=== PATIENT | male | born 1990 | race Caucasian/White ===

== ENCOUNTER 2024-01-18 00:16 | Inpatient (IN) | payer MEDICAID, SELFPAY ==
[2024-01-18] VITALS (16 sets, daily range): BP systolic 120–170; BP diastolic 69–125; PULSE 88–130; RESP 14–18; TEMP 36.4–37; O2SAT 92–99
[2024-01-18 01:24] LABS: Basophils % 0.1 %; Hematocrit 38.3 % (37-53); Lymphocytes # 1.7 10^3/uL (0.8-4.8); Mean Corpuscular HGB Conc 31.1 g/dL (30-55); Mean Corpuscular Hemoglobin 23.3 pg (27-33); Mean Platelet Volume 7.9 fL (7.4-10.4); Monocytes # 1.5 10^3/uL (0.2-0.9); Neutrophils # 17.71 10^3/uL (1.8-7.7); Neutrophils % 84.2 %; Nucleated Red Blood Cells % 0 %; Platelet Count 540 10^3/cmm (157-399); Red Blood Count 5.11 10^6/uL (3.85-5.65); Red Cell Distribution Width 17.6 % (12.1-15.1); White Blood Count 21.06 10^3/uL (3.29-11.43)
[2024-01-18] MEDS: sodium chloride 0.9% 1,000 ML 999 ML IV (01:29)
[2024-01-18 01:42] LABS: Alanine Aminotransferase 32 U/L (0-41); Alkaline Phosphatase 126 U/L (40-130); Aspartate Amino Transferase 28 U/L (0-40); Blood Urea Nitrogen 15 mg/dL (6-20); C Reactive Protein 133.8 mg/L (0.0-4.9); Calcium 8.8 mg/dL (8.5-10.5); Carbon Dioxide 25 mmol/L (22-29); Chloride 100 mmol/L (98-107); Globulin 3.8 g/dL (1.3-4.6); Glucose 134 mg/dL (65-115); Lipase 7 U/L (13-60); Osmolality Calculated 289 mOsm/kg (285-295); Sodium 138 mmol/L (136-145); Total Bilirubin 0.3 mg/dL (0.15-1.2); Total Protein 7.8 g/dL (6.6-8.7)
--- NOTE | 2024-01-18 02:45 | CTR_ITS ---
PROCEDURE INFORMATION: Exam: CT Abdomen And Pelvis With Contrast Exam date and time: 01/18/2024 2:51 AM Age: 34 years old Clinical indication: Abdominal pain; Right; Prior surgery; Surgery date: 6+ months; Surgery type: Rle amputation; Patient HX: PT C/O RT flank pain. Patient had CT scan performed yesterday at outside facility which reported left iliopsoas hematoma/neoplasm/infection. ; Additional info: R flank pain. ? HX of left pelvic mass TECHNIQUE: Imaging protocol: Computed tomography of the abdomen and pelvis with contrast. Radiation optimization: All CT scans at this facility use at least one of these dose optimization techniques: automated exposure control; mA and/or kV adjustment per patient size (includes targeted exams where dose is matched to clinical indication); or iterative reconstruction. Contrast material: OMNI 350; Contrast volume: 100 ml; Contrast route: INTRAVENOUS (IV); COMPARISON: No relevant prior studies available. RADIATION DOSE METRICS: Total DLP (mGy-cm): 869.18 FINDINGS: Liver: Nonspecific ill-defined hypodensity in hepatic segment 6 measuring 1.6 x 1 cm (series 3, image 34). Gallbladder and biliary ducts: Normal. No calcified stones. No ductal dilation. Pancreas: Normal. No ductal dilation. Spleen: Normal. No splenomegaly. Adrenal glands: Normal. No mass. Kidneys and ureters: Normal. No hydronephrosis. Stomach and bowel: Unremarkable. No obstruction. No mucosal thickening. Appendix: No evidence of appendicitis. Intraperitoneal space: Unremarkable. No free air. No significant fluid collection. Vasculature: Unremarkable. No abdominal aortic aneurysm. Lymph nodes: Unremarkable. No enlarged lymph nodes. Urinary bladder: Unremarkable as visualized. Reproductive: Unremarkable as visualized. Bones/joints: Right proximal femoral amputation. Mild spondylosis. Soft tissues: Heterogenous soft tissue swelling of the left iliopsoas muscle with significant surrounding fat stranding and intramuscular edema. No definite drainable fluid collection is appreciated. CT/CT abdomen pelvis w con* [id number] IMPRESSION: 1. Heterogenous soft tissue swelling of the left iliopsoas muscle with significant surrounding fat stranding and muscular edema may represent an iliopsoas myositis or hematoma. There is no appreciable drainable fluid collection at this time. 2. There is a nonspecific ill-defined hypodensity in hepatic segment 6 that is incompletely characterized on this exam, recommend nonemergent CT triple phase liver for further evaluation.
[2024-01-18 02:46] LABS: Bilirubin Urine Negative (Negative); Blood Urine 1+ (Negative); Glucose Urine UA Negative (Normal); Ketones Urine Negative (Negative); Leukocyte Esterase Urine Trace (Negative); Nitrate Urine Negative (Negative); Protein Urine 1+ (Negative); Urine Appearance Clear (CLEAR); Urine Color Dark Yellow (Yellow); pH Urine 6.5 (5-7)
[2024-01-18 02:58] LABS: Specific Gravity, Urine 1.052 (1.005-1.030)
[2024-01-18 03:00] LABS: Add Urine Microscopic? YES; Hyaline Casts Urine 0.81 /lpf; RBC Urine 21-50 /hpf (0-2); WBC Urine 0-4 /hpf (0-5)
[2024-01-18 03:01] LABS: Add Urine Culture? No
[2024-01-18] MEDS: iohexol 350 mg/mL 500 mL Btl (per mL) IV (03:02)
--- NOTE | 2024-01-18 04:19 | W.ED.ABDPA2 ---
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 He presents with right sided mainly flank pain for the past 36 hours or so. He has been sick at his stomach. He has vomited a couple of times. He has not had a fever. He has had some chills. He presented to an outside facility, where he was found to have an elevated white blood cell count. Imaging was performed, and there was evidently some concern for a left-sided psoas problem. Not understanding why he would have right-sided abdominal pain/flank pain and a left-sided psoas problem, they left AGAINST MEDICAL ADVICE. They present here this morning with continued right-sided flank pain, and vomiting. His heart rate has also been high Related Data Allergies Allergy/AdvReac Type Severity Reaction Status Date / Time Penicillins Allergy ALGY-Anaphy Verified 01/18/24 04:39 laxis Physical Exam Const: COMMON NORMALS: alert GENERAL APPEARANCE: ill appearing (Mildly) ORIENTATION/CONSCIOUSNESS: Yes awake HENMT: COMMON NORMALS: atraumatic HEAD & SCALP: atraumatic FACE & SINUS: no ecchymosis Eye: PUPIL: Yes Other pupil findings (Both react) Neck/C-Spine: GENERAL: Yes trachea midline and No anterior neck swelling Resp: COMMON NORMALS: normal respiratory effort, No use of accessory muscles and clear to auscultation bilaterally AUSCULTATION: clear to auscultation bilaterally Cardio: COMMON NORMALS: regular rate and regular rhythm RATE: regular rate RHYTHM: regular rhythm GI: COMMON NORMALS: Soft to palpation PALPATION: Yes Soft to palpation and Yes Guarding due to palpation present (GI) : BLADDER/KIDNEY EXAM: Yes CVA tenderness on the right Back/Pelvis: GENERAL BACK: Yes CVA tenderness Neuro: SENSORIUM/ORIENTATION: Yes alert Course Vital Signs: Vital signs: Vital Signs Temperature 97.7 F 01/18/24 00:24 Pulse Rate 110 H 01/18/24 04:30 Respiratory Rate 18 01/18/24 00:24 Blood Pressure 138/90 01/18/24 04:30 Pulse Oximetry 97 01/18/24 04:30 Oxygen Delivery Me thod Room Air 01/18/24 02:30 MDM - Abdominal Pain Medical Decision Making Patient is afebrile. He is tachycardic. He is hypertensive not hypotensive. He is given 1 L bolus for the tachycardia. His white blood cell count is 21. CRP is 134. His lactic acid is 2. Potassium is 3.0. This will be repleted. CT was repeated, and shows heterogeneous soft tissue swelling of the left iliopsoas muscle with no drainable fluid collection present. This is likely a myositis versus less likely hematoma. He is covered with vancomycin and Zosyn. Spoke with hospitalist. Agrees to admission. Lab Data 01/18/24 01:16 01/18/24 01:16 Labs/Radiology: Radiology Impressions Abdomen/Pelvis CT 01/18/24 02:45 IMPRESSION: 1. Heterogenous soft tissue swelling of the left iliopsoas muscle with significant surrounding fat stranding and muscular edema may represent an iliopsoas myositis or hematoma. There is no appreciable drainable fluid collection at this time. 2. There is a nonspecific ill-defined hypodensity in hepatic segment 6 that is incompletely characterized on this exam, recommend nonemergent CT triple phase liver for further evaluation. Laboratory Results WBC 21.06 10^3/uL (3.29-11.43) H 01/18/24 01:16 RBC 5.11 10^6/uL (3.85-5.65) 01/18/24 01:16 Hgb 11.90 g/dL (11.27-16.99) 01/18/24 01:16 Hct 38.3 % (37-53) 01/18/24 01:16 MCV 75.0 fl (82-101) L 01/18/24 01:16 MCH 23.3 pg (27-33) L 01/18/24 01:16 MCHC 31.1 g/dL (30-55) 01/18/24 01:16 RDW 17.6 % (12.1-15.1) H 01/18/24 01:16 Plt Count 540 10^3/cmm (157-399) H 01/18/24 01:16 MPV 7.9 fL (7.4-10.4) 01/18/24 01:16 Neut % (Auto) 84.2 % 01/18/24 01:16 Lymph % (Auto) 8.0 % 01/18/24 01:16 [place] % (Auto) 7.0 % 01/18/24 01:16 Eos % (Auto) 0.0 % 01/18/24 01:16 Baso % (Auto) 0.1 % 01/18/24 01:16 Neut # (Auto) 17.71 10^3/uL (1.8-7.7) H 01/18/24 01:16 Lymph # (Auto) 1.7 10^3/uL (0.8-4.8) 01/18/24 01:16 [place] # (Auto) 1.5 10^3/uL (0.2-0.9) H 01/18/24 01:16 Eos # (Auto) 0.0 10^3/uL (0.0-0.8) 01/18/24 01:16 Baso # (Auto) 0.0 10^3/uL (0.0-0.1) 01/18/24 01:16 Nucleated RBC % (auto) 0 % 01/18/24 01:16 Nucleated RBCs # 0.0 /100WBC 01/18/24 01:16 Sodium 138 mmol/L (136-145) 01/18/24 01:16 Potassium 3.0 mmol/L (3.5-5.1) L 01/18/24 01:16 Chloride 100 mmol/L (98-107) 01/18/24 01:16 Carbon Dioxide 25 mmol/L (22-29) 01/18/24 01:16 Anion Gap 16.0 (5-19) 01/18/24 01:16 BUN 15 mg/dL (6-20) 01/18/24 01:16 Creatinine 0.8 mg/dL (0.7-1.2) 01/18/24 01:16 GFR Calculation 110.0 mL/min (90-130) 01/18/24 01:16 Glucose 134 mg/dL (65-115) H 01/18/24 01:16 Calculated Osmolality 289 mOsm/kg (285-295) 01/18/24 01:16 Lactic Acid 2.0 mmol/L (0.5-2.2) 01/18/24 01:16 Calcium 8.8 mg/dL (8.5-10.5) 01/18/24 01:16 Total Bilirubin 0.3 mg/dL (0.15-1.2) 01/18/24 01:16 AST 28 U/L (0-40) 01/18/24 01:16 ALT 32 U/L (0-41) 01/18/24 01:16 Alkaline Phosphatase 126 U/L (40-130) 01/18/24 01:16 C-Reactive Protein 133.8 mg/L (0.0-4.9) H 01/18/24 01:16 Total Protein 7.8 g/dL (6.6-8.7) 01/18/24 01:16 Albumin 4.0 g/dL (3.5-5.2) 01/18/24 01:16 Globulin 3.8 g/dL (1.3-4.6) 01/18/24 01:16 Lipase 7 U/L (13-60) L 01/18/24 01:16 Urine Color Dark yellow (Yellow) A 01/18/24 02:39 Urine Appearance Clear (CLEAR) 01/18/24 02:39 Urine pH 6.5 (5-7) 01/18/24 02:39 Ur Specific [place] 1.052 (1.005-1.030) H 01/18/24 02:39 Urine Protein 1+ (Negative) A 01/18/24 02:39 Urine Glucose (UA) Negative (Normal) 01/18/24 02:39 Urine Ketones Negative (Negative) 01/18/24 02:39 Urine Blood 1+ (Negative) A 01/18/24 02:39 Urine Nitrate Negative (Negative) 01/18/24 02:39 Urine Bilirubin Negative (Negative) 01/18/24 02:39 Urine Urobilinogen 1.0 mg/dL (Negative) 01/18/24 02:39 Ur Leukocyte Esterase Trace (Negative) A 01/18/24 02:39 Urine RBC 21-50 /hpf (0-2) H 01/18/24 02:39 Urine WBC 0-4 /hpf (0-5) H 01/18/24 02:39 Ur Squamous Epith Cells 6-10 /hpf (0-5) 01/18/24 02:39 Amorphous Sediment Not Reportable 01/18/24 02:39 Urine Bacteria None /hpf (NONE) 01/18/24 02:39 Hyaline Casts 0.81 /lpf 01/18/24 02:39 All radiology interpretation(s) finalized by discharge Discharge Plan Discharge Patient Disposition: Admitted As Inpatient Clinical Impression: SIRS (systemic inflammatory response syndrome), Iliopsoas muscle hematoma Condition: Fair Referrals: Manuelito Sullivan MD [Primary Care Provider] - Coding Level of Care Code ED Mobile Paramedical Examiner for Barbara Johns
[2024-01-18] MEDS: vancomycin 1,250 MG/250 ML PIGGYBACK 166.67 MG IV (04:41)
[2024-01-18] MEDS: levofloxacin-dextrose 5 % 500 MG/100 ML PREMIX 100 MG IV (05:26)
[2024-01-18] MEDS: metroNIDAZOLE IV 500 MG/100 ML PREMIX 100 MG IV (05:29)
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
--- NOTE | 2024-01-18 06:30 | XRR_ITS ---
PROCEDURE INFORMATION: Exam: XR Chest Exam date and time: 01/18/2024 8:51 AM Age: 34 years old Clinical indication: Pain; Right-sided; Additional info: Right side pain- assess for rib fracture TECHNIQUE: Imaging protocol: Radiologic exam of the chest. Views: 1 view. COMPARISON: CT abdomen pelvis w con* [id number] 01/18/2024 2:51 AM FINDINGS: Tubes, catheters and devices: Tip of the right chest wall port projects over the right atrium. Lungs: Low lung volumes with bronchovascular crowding . Pleural spaces: Unremarkable. No pleural effusion. No pneumothorax. Heart/Mediastinum: Cardiomediastinal silhouette is unremarkable. Bones/joints: No acute osseous or soft tissue abnormality. XR/XR chest 1V portable [id number] IMPRESSION: Low lung volumes with bronchovascular crowding.
--- NOTE | 2024-01-18 08:13 | P.PHAVANC_ITS ---
Vancomycin Goal - Goal Vancomycin Goal:: 15-20 mg/L Vancomycin Indication:: Other (Infectious Myositis) - Therapy Current therapy:: Other Antibiotic (Aztreonam IVPB 2gm Q8H) Day of therpy:: Day []of [] . Actual body weight (kg): 73.482 kg [place] body weight: 27 KG Dosing weight (kg): 73.482 kg - Data Labs: WBC 21.06 10^3/uL (3.29-11.43) H 01/18/24 01:16 RBC 5.11 10^6/uL (3.85-5.65) 01/18/24 01:16 Hgb 11.90 g/dL (11.27-16.99) 01/18/24 01:16 Hct 38.3 % (37-53) 01/18/24 01:16 MCV 75.0 fl (82-101) L 01/18/24 01:16 MCH 23.3 pg (27-33) L 01/18/24 01:16 MCHC 31.1 g/dL (30-55) 01/18/24 01:16 RDW 17.6 % (12.1-15.1) H 01/18/24 01:16 Sodium 138 mmol/L (136-145) 01/18/24 01:16 Potassium 3.0 mmol/L (3.5-5.1) L 01/18/24 01:16 Chloride 100 mmol/L (98-107) 01/18/24 01:16 Carbon Dioxide 25 mmol/L (22-29) 01/18/24 01:16 Anion Gap 16.0 (5-19) 01/18/24 01:16 BUN 15 mg/dL (6-20) 01/18/24 01:16 Creatinine 0.8 mg/dL (0.7-1.2) 01/18/24 01:16 GFR Calculation 110.0 mL/min (90-130) 01/18/24 01:16 Last dialysis session:: N/A Drug administration history:: Medications Aztreonam 2,000 mg/ Sodium (Chloride) 100 mls @ 200 mls/hr IV Q8H TILA; Protocol Vancomycin HCl 500 mg/ Sodium (Chloride) 100 mls @ 200 mls/hr IV Q12H TILA Discontinued Medications Levofloxacin/Dextrose (Levaquin-D5w) 500 mg in 100 mls @ 100 mls/hr IV ONCE ONE; Protocol Stop: 01/18/24 05:38 Last Admin: 01/18/24 06:36 Dose: Infused Metronidazole (Flagyl Iv) 500 mg in 100 mls @ 100 mls/hr IV ONCE ONE Stop: 01/18/24 05:38 Last Admin: 01/18/24 06:36 Dose: Infused Piperacillin Sod/Tazobactam (Sod 3.375 gm/ Sodium Chloride) 50 mls @ 100 mls/hr IV ONCE ONE; Protocol Stop: 01/18/24 04:58 Last Admin: 01/18/24 06:36 Dose: Not Given Vancomycin HCl (Vancocin) 1,250 mg in 250 mls @ 166.667 mls/hr IV ONCE ONE; Protocol Stop: 01/18/24 05:58 Last Admin: 01/18/24 06:36 Dose: Infused Laboratory Tests 01/18/24 01:16 Creatinine 0.8 Treatment plan:: new consult Regimen:: Vancomycin 500mg IVPB Q12H Follow up:: Scr daily with AM labs. Pharmacy will continue to monitor. Rationale:: t1/2 15 hrs.
[2024-01-18] MEDS: aztreonam 2,000 MG in sodium chloride 0.9% (plus) 100 ML 200 MG IV ×3 (08:14→22:47)
[2024-01-18] MEDS: lidocaine 1% 5 ML in potassium chloride premix 100 ML 26.25 ML IV (09:38)
[2024-01-18] MEDS: sodium chlor 0.9% + KCl 20 mEq 20 MEQ/1,000 ML BAG 100 MEQ IV ×2 (09:39→20:50)
[2024-01-18] MEDS: loratadine 10 mg Tablet PO (09:40)
[2024-01-18] MEDS: pantoprazole DR 40 mg Tablet PO ×2 (09:40→21:30)
[2024-01-18] MEDS: carBAMazepine 200 mg Tablet PO ×2 (09:40→21:30)
[2024-01-18 11:16] LABS: Estmated Average Glucose 117; Hemoglobin A1C 5.7 % (4.0-6.0)
[2024-01-18 11:28] LABS: Procalcitonin 0.08 ng/mL (0-0.5); Thyroid Stimulating Hormone 1.41 uIU/mL (0.27-4.20); Vitamin B12 554 pg/mL (232-1245)
[2024-01-18 11:38] LABS: Iron 18 ug/dL (59-158); Percent Saturation 8.2 % (20-50); Total Iron Binding Capacity 217 mcg/dl; Unsaturated Iron Binding 199 ug/dL (112-347)
[2024-01-18 17:01] LABS: MRSA PCR OZH (swab) NOT DETECTED (Negative)
[2024-01-18] MEDS: vancomycin 500 MG in sodium chloride 0.9% (plus) 100 ML 200 MG IV (17:14)
[2024-01-18 19:55] LABS: C.Diff PCR (Lab) NEGATIVE (Negative)
[2024-01-19] VITALS (7 sets, daily range): BP systolic 130–180; BP diastolic 72–84; PULSE 90–110; RESP 15–18; TEMP 36.3–36.7; O2SAT 93–99
[2024-01-19] MEDS: vancomycin 500 MG in sodium chloride 0.9% (plus) 100 ML 200 MG IV (04:46)
[2024-01-19 04:48] LABS: Basophils # 0.1 10^3/uL (0.0-0.1); Basophils % 0.4 %; Eosinophils # 0.1 10^3/uL (0.0-0.8); Hematocrit 34.7 % (37-53); Lymphocytes # 2.1 10^3/uL (0.8-4.8); Lymphocytes % 18.6 %; Mean Corpuscular HGB Conc 30.3 g/dL (30-55); Mean Corpuscular Hemoglobin 23.3 pg (27-33); Mean Corpuscular Volume 76.9 fl (82-101); Mean Platelet Volume 8.3 fL (7.4-10.4); Monocytes # 1.1 10^3/uL (0.2-0.9); Monocytes % 10.1 %; Neutrophils # 7.77 10^3/uL (1.8-7.7); Nucleated Red Blood Cells % 0 %; Platelet Count 521 10^3/cmm (157-399); Red Blood Count 4.51 10^6/uL (3.85-5.65); Red Cell Distribution Width 17.6 % (12.1-15.1); White Blood Count 11.26 10^3/uL (3.29-11.43)
[2024-01-19 05:04] LABS: Alanine Aminotransferase 33 U/L (0-41); Albumin Level 3.5 g/dL (3.5-5.2); Alkaline Phosphatase 108 U/L (40-130); Anion Gap 12.5 (5-19); Aspartate Amino Transferase 19 U/L (0-40); Blood Urea Nitrogen 9 mg/dL (6-20); Calcium 8.3 mg/dL (8.5-10.5); Carbon Dioxide 25 mmol/L (22-29); Chloride 103 mmol/L (98-107); Creatinine Clr Calc Pharmacy 177.7198; Globulin 3.2 g/dL (1.3-4.6); Glomerular Filtration Rate 153.3 mL/min (90-130); Glucose 94 mg/dL (65-115); Osmolality Calculated 282 mOsm/kg (285-295); Potassium 3.5 mmol/L (3.5-5.1); Sodium 137 mmol/L (136-145); Total Bilirubin 0.2 mg/dL (0.15-1.2); Total Protein 6.7 g/dL (6.6-8.7)
[2024-01-19 05:15] LABS: Chol HDL Ratio 3.95 mg/dL (1.0-5.00); Cholesterol 158 mg/dL (0-200); HDL Cholesterol 40 mg/dL (60-100); LDL Cholesterol Calculated 100 mg/dL (50-129); Magnesium 2.1 mg/dL (1.7-2.3); Triglycerides 88 mg/dL (0-150); VLDL Cholestrol Calculation 18 mg/dL (0-30)
[2024-01-19 05:27] LABS: Folate Level 3.2 ng/mL (4.5-32.2)
[2024-01-19] MEDS: aztreonam 2,000 MG in sodium chloride 0.9% (plus) 100 ML 200 MG IV ×3 (06:33→22:40)
[2024-01-19] MEDS: sodium chlor 0.9% + KCl 20 mEq 20 MEQ/1,000 ML BAG 100 MEQ IV (06:35)
[2024-01-19] MEDS: carBAMazepine 200 mg Tablet PO ×2 (09:27→21:17)
[2024-01-19] MEDS: loratadine 10 mg Tablet PO (09:27)
[2024-01-19] MEDS: pantoprazole DR 40 mg Tablet PO ×2 (09:27→21:17)
[2024-01-19] MEDS: folic acid 1 mg Tablet PO ×2 (10:56→17:03)
--- NOTE | 2024-01-19 11:56 | P.PN_ITS ---
Subjective 2 Subjective: No acute events overnight. Seen with family at bedside. Denies any nausea, vomiting, headache. Has remained hemodynamically stable and afebrile. Vitals/I&O/Wt Last Vital Signs Temp 97.8 F 01/19/24 08:00 Pulse 109 H 01/19/24 08:00 Resp 18 01/19/24 08:00 BP 140/83 01/19/24 08:00 Pulse Ox 99 01/19/24 08:00 O2 Del Method Room Air 01/19/24 08:00 01/18/24 01/19/24 01/19/24 22:59 06:59 14:59 Intake Total 1800.000 / 2485.000 1175 / 3660.000 780 / 780 Balance 1800.000 / 2485.000 1175 / 3660.000 780 / 780 Weight last 48 hrs Weight 73.119 kg Weight 73.482 kg Weight 73.482 kg Physical Exam 2 Narrative: General: No acute distress, AO x3 HEENT: PERRLA, pupils bilaterally equal and reactive, pallors not present Chest: Normal vesicular breath sounds, no added sounds, equal good air entry bilaterally CVS: S1-S2 regular, no murmurs, no tachycardia, no gallops, no rubs Abdomen: Soft, nontender, no organomegaly, bowel sounds present Neuro: No focal deficits, no facial deformity, AO x3, power 5/5 in all limbs Extremities: Discomfort to palpation over the left posterior flank. Improving since yesterday. Data 01/19/24 03:16 01/19/24 03:16 Micro: Microbiology 01/18/24 02:39 Bacterial Antigens - Final Urine Kidney 01/18/24 05:23 Blood Culture - Preliminary Blood NEGATIVE TO DATE 01/18/24 05:20 Blood Culture - Preliminary Blood NEGATIVE TO DATE A&P Assessment and plan (1) Infectious myositis: (2) Prader-Willi syndrome: (3) Autonomic dysfunction: Plan 34-year-old male with a past medical history of Prader-Willi syndrome, autonomic, seizure disorder currently admitted to the hospital with chief complaints of abdominal and back pain, fever at home. Patient was noted to be hypoxic CT of the abdomen and pelvis notable for heterogeneous soft tissue swelling in the left iliopsoas muscle with significant fat stranding and muscular edema concerning for iliopsoas myositis or hematoma. No appreciable drainable fluid at this time. High concerns for bacteremia given psoas myositis. Not able to access patient's port. Concern for mild fluctuation at the port site. Follow-up blood culture. Recheck CRP in AM. Continue with broad-spectrum antibiotics with aztreonam and vancomycin for now. Target trough of vancomycin 15-20. MRSA swab negative. Ultrasound of port site. Depending on the result might need I&D for culture. Full code Regular diet Protonix for PUD prophylaxis Heparin for DVT prophylaxis Attestations 2 Medical Necessity Statement*: Requires further hospitalization for management of psoas muscle myositis while bacteremia ruled out. Diagnoses Infectious myositis M60.009 Prader-Willi syndrome Q87.11 Autonomic dysfunction G90.9
--- NOTE | 2024-01-19 11:58 | USR_ITS ---
PROCEDURE INFORMATION: Exam: US Right Limited Joint or Other Non-Vascular Extremity Structure Exam date and time: 01/19/2024 2:13 PM Age: 34 years old Clinical indication: Condition or disease; Other: Port site with concerns for fluctuation and collection; Prior surgery; Surgery date: 6+ months; Surgery type: Unsure of placement but this is a port site TECHNIQUE: Imaging protocol: US right limited joint or other nonvascular extremity structure. Real-time ultrasound with image documentation. Exam focused on the area of clinical interest. COMPARISON: No relevant prior studies available. FINDINGS: Soft tissues: Unremarkable. No loculated collections. Other findings: There is a rounded hypoechoic area of the right chest port site measuring 1.8 x 1.3 x 1.6 cm with posterior acoustic shadowing, likely the port access. No definite surrounding fluid visualized. US/US soft tissue/extremity [id number] IMPRESSION: No definite fluid collection identified.
[2024-01-19] MEDS: heparin 5,000 unit/mL INJ 1 mL 5000 UNIT SUBCUT ×2 (12:15→22:39)
[2024-01-19] MEDS: vancomycin 1,000 MG in sodium chloride 0.9% 250 ML 250 MG IV ×2 (13:34→21:17)
[2024-01-20] VITALS (10 sets, daily range): BP systolic 101–141; BP diastolic 57–92; PULSE 82–135; RESP 12–18; TEMP 36.5–36.9; O2SAT 94–97
[2024-01-20] MEDS: vancomycin 1,000 MG in sodium chloride 0.9% 250 ML 250 MG IV (04:56)
[2024-01-20 05:56] LABS: Albumin Level 3.9 g/dL (3.5-5.2); Alkaline Phosphatase 117 U/L (40-130); Blood Urea Nitrogen 9 mg/dL (6-20); C Reactive Protein 44.1 mg/L (0.0-4.9); Calcium 8.6 mg/dL (8.5-10.5); Carbon Dioxide 25 mmol/L (22-29); Chloride 99 mmol/L (98-107); Creatinine Clr Calc Pharmacy 147.5354; Globulin 2.8 g/dL (1.3-4.6); Glomerular Filtration Rate 128.3 mL/min (90-130); Glucose 92 mg/dL (65-115); Magnesium 2.2 mg/dL (1.7-2.3); Osmolality Calculated 276 mOsm/kg (285-295); Sodium 134 mmol/L (136-145); Total Bilirubin 0.2 mg/dL (0.15-1.2); Total Protein 6.7 g/dL (6.6-8.7)
[2024-01-20 05:58] LABS: Alanine Aminotransferase 36 U/L (0-41); Anion Gap 14.2 (5-19); Aspartate Amino Transferase 25 U/L (0-40); Potassium 4.2 mmol/L (3.5-5.1)
[2024-01-20] MEDS: aztreonam 2,000 MG in sodium chloride 0.9% (plus) 100 ML 200 MG IV ×3 (06:20→23:05)
[2024-01-20 07:01] LABS: Basophils # 0.1 10^3/uL (0.0-0.1); Basophils % 0.6 %; Eosinophils # 0.2 10^3/uL (0.0-0.8); Eosinophils % 1.9 %; Hematocrit 38.4 % (37-53); Lymphocytes # 2.3 10^3/uL (0.8-4.8); Lymphocytes % 19.3 %; Mean Corpuscular HGB Conc 30.7 g/dL (30-55); Mean Corpuscular Hemoglobin 24.1 pg (27-33); Mean Corpuscular Volume 78.5 fl (82-101); Mean Platelet Volume 8.2 fL (7.4-10.4); Monocytes # 0.9 10^3/uL (0.2-0.9); Monocytes % 7.9 %; Neutrophils # 8.17 10^3/uL (1.8-7.7); Neutrophils % 69.8 %; Nucleated Red Blood Cells % 0 %; Platelet Count 533 10^3/cmm (157-399); Red Blood Count 4.89 10^6/uL (3.85-5.65); Red Cell Distribution Width 17.5 % (12.1-15.1); White Blood Count 11.71 10^3/uL (3.29-11.43)
[2024-01-20] MEDS: pantoprazole DR 40 mg Tablet PO ×2 (09:25→23:05)
[2024-01-20] MEDS: loratadine 10 mg Tablet PO (09:25)
[2024-01-20] MEDS: folic acid 1 mg Tablet PO ×2 (09:25→17:12)
[2024-01-20] MEDS: carBAMazepine 200 mg Tablet PO ×2 (09:25→23:05)
--- NOTE | 2024-01-20 09:42 | PC.CHAP ---
Pastoral Care Encounter/Spiritual Assessment Type of Contact [] Declined scanning tech visit [] Patient/Family/Request visit [] Outpatient visit [] Follow-up visit [] Physician referral [] Code/Alert [x] Routine visit [] Staff referral [] Actively dying [x] Patient sleeping [] Family support [] [] Out of room [] Palliative care [] [] Receiving care in room [] Pre-surgical visit [] Trauma [] Long length of stay [] ICU visit [] Other: Relational/Emotional Strength [] Patient feels connected with others/family/visitors/staff [] Distress [] Loneliness/isolation [] Abandonment Spirituality of Patient [] Person of Maria G [] Attends Quaker of their Maria G [] Believes in Prayer [] Reads Bible or Rastafarian materials [] There are Spiritual issues to be addressed Tenterer Interventions [x] Prayer [] Active listening [] Non-anxious presence [] Spiritual/emotional support [] Crisis/trauma care [] Spiritual counseling [] Bereavement support [] Provided bereavement packet [] Provided Bible/devotional materials [] Provided toy/stuffed animal, coloring book to patient or family member [] Provided Communion [] Anointing/[place] [] Salvation [] Completed spiritual assessment [] Other: Impact on Illness or Injury [] Angry [] Fearful [] Anxious [] Often cries [] Exhaustion [] Unable to work [] Unable to attend temple [] Unable to walk/stand [] Unable to read [] Unable to drive [] Unable to eat/drink [] Unable to sleep [] Unable to be with family [] Patient intubated [] Other: Summary Time spent with patient
[2024-01-20] MEDS: heparin 5,000 unit/mL INJ 1 mL 5000 UNIT SUBCUT ×2 (11:40→23:05)
[2024-01-20 12:53] LABS: Vancomycin Trough 14.8 ug/mL (10-15)
--- NOTE | 2024-01-20 12:58 | P.PN_ITS ---
Subjective 2 Subjective: CRP 44. Blood cultures negative to date Bacterial antigen negative Patient states he is starting to feel like he is normal again. Says pain over left flank is improved and no longer there. Soft tissue ultrasound reviewed. No defined abscess seen. Vitals/I&O/Wt Last Vital Signs Temp 98.2 F 01/20/24 11:22 Pulse 107 H 01/20/24 11:22 Resp 15 01/20/24 11:22 BP 131/79 01/20/24 11:22 Pulse Ox 95 01/20/24 11:22 O2 Del Method Room Air 01/20/24 11:22 01/19/24 01/20/24 01/20/24 22:59 06:59 14:59 Intake Total 470 / 1500 350 / 1850 454 / 454 Balance 470 / 1500 350 / 1850 454 / 454 Weight last 48 hrs Weight 70.817 kg Weight 73.119 kg Physical Exam 2 Narrative: General: No acute distress, AO x3 HEENT: PERRLA, pupils bilaterally equal and reactive, pallors not present Chest: Normal vesicular breath sounds, no added sounds, equal good air entry bilaterally CVS: S1-S2 regular, no murmurs, no tachycardia, no gallops, no rubs Abdomen: Soft, nontender, no organomegaly, bowel sounds present Neuro: No focal deficits, no facial deformity, AO x3, power 5/5 in all limbs Extremities: No gross edema. Visible skin intact. Few areas of ecchymosis present Data 01/20/24 05:57 01/20/24 04:41 Micro: Microbiology 01/18/24 02:39 Bacterial Antigens - Final Urine Kidney A&P Assessment and plan (1) Infectious myositis: (2) Prader-Willi syndrome: (3) Autonomic dysfunction: Plan 34-year-old male with a past medical history of Prader-Willi syndrome, autonomic, seizure disorder currently admitted to the hospital with chief complaints of abdominal and back pain, fever at home. Patient was noted to be hypoxic CT of the abdomen and pelvis notable for heterogeneous soft tissue swelling in the left iliopsoas muscle with significant fat stranding and muscular edema concerning for iliopsoas myositis or hematoma. No appreciable drainable fluid at this time. High concerns for bacteremia given psoas myositis. Not able to access patient's port. Concern for mild fluctuation at the port site. Follow-up blood culture. Recheck CRP in AM. Continue with broad-spectrum antibiotics with aztreonam and vancomycin for now. Target trough of vancomycin 15-20. MRSA swab negative. Ultrasound of port site. Depending on the result might need I&D for culture. Full code Regular diet Protonix for PUD prophylaxis Heparin for DVT prophylaxis 01/19 ? Blood cultures negative to date. CRP trending down. ? Flank pain improving ? Soft tissue ultrasound reviewed. No defined abscess around port however hypoechoic area seen. This may be possibly secondary to the port itself. ? Patient has a history of recurrent infections and there is concern for hematogenousl spread at this time. He has been on antibiotics multiple times in the past. ? Continue broad-spectrum vancomycin and aztreonam at this time. ? Will consult infectious disease for duration of antibiotic treatment and further input. Discussed with the patient. Attestations 2 Medical Necessity Statement*: Requires further hospitalization for management of psoas muscle myositis while bacteremia ruled out. Diagnoses Infectious myositis M60.009 Prader-Willi syndrome Q87.11 Autonomic dysfunction G90.9
[2024-01-20] MEDS: vancomycin 1,250 MG/250 ML PIGGYBACK 166.67 MG IV (14:12)
--- NOTE | 2024-01-20 14:54 | ECG_ITS ---
[facility] Test Date: 2024-01-20 Pat Name: Lion Connell Department: Room: 255 Gender: Male Marketing Communications Leader: : 1990 Requested By: Augusta Fox Order Number: [id number] Jeanmarie MD: Denzel Fitzgerald M.D. Measurements Intervals [place] Rate: 120 P: 42 OR: 124 QRS: 5 QRSD: 89 T: 70 QT: 338 QTc: 479 Interpretive Statements SINUS TACHYCARDIA NONSPECIFIC T-WAVE ABNORMALITY ABNORMAL RHYTHM ECG No previous ECG available for comparison Electronically Signed On 01-21-2024 01:22:54 CDT by Denzel Fitzgerald M.D. [id number]
[2024-01-20] MEDS: sodium chloride 0.9% 500 ML 999 ML IV (15:44)
[2024-01-20] MEDS: vancomycin 1,250 MG/250 ML PIGGYBACK 166 MG IV (20:39)
[2024-01-21] VITALS (8 sets, daily range): BP systolic 102–137; BP diastolic 60–83; PULSE 86–118; RESP 14–17; TEMP 36.4–37.1; O2SAT 90–98
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
[2024-01-21] MEDS: vancomycin 1,250 MG/250 ML PIGGYBACK 166 MG IV ×3 (04:40→20:37)
[2024-01-21 05:19] LABS: Basophils # 0.1 10^3/uL (0.0-0.1); Basophils % 0.7 %; Eosinophils # 0.2 10^3/uL (0.0-0.8); Eosinophils % 1.4 %; Hematocrit 40.2 % (37-53); Lymphocytes # 2.3 10^3/uL (0.8-4.8); Lymphocytes % 17.6 %; Mean Corpuscular HGB Conc 30.3 g/dL (30-55); Mean Corpuscular Hemoglobin 23.6 pg (27-33); Mean Corpuscular Volume 77.8 fl (82-101); Monocytes # 0.9 10^3/uL (0.2-0.9); Monocytes % 6.9 %; Neutrophils # 9.55 10^3/uL (1.8-7.7); Neutrophils % 72.7 %; Nucleated Red Blood Cells % 0 %; Platelet Count 580 10^3/cmm (157-399); Red Blood Count 5.17 10^6/uL (3.85-5.65); Red Cell Distribution Width 17.4 % (12.1-15.1); White Blood Count 13.15 10^3/uL (3.29-11.43)
[2024-01-21 05:49] LABS: Alanine Aminotransferase 49 U/L (0-41); Albumin Level 3.8 g/dL (3.5-5.2); Alkaline Phosphatase 123 U/L (40-130); Anion Gap 16.7 (5-19); Aspartate Amino Transferase 30 U/L (0-40); Blood Urea Nitrogen 10 mg/dL (6-20); Calcium 8.7 mg/dL (8.5-10.5); Carbon Dioxide 23 mmol/L (22-29); Chloride 100 mmol/L (98-107); Creatinine Clr Calc Pharmacy 147.5354; Globulin 3.4 g/dL (1.3-4.6); Glomerular Filtration Rate 128.3 mL/min (90-130); Glucose 90 mg/dL (65-115); Osmolality Calculated 281 mOsm/kg (285-295); Potassium 3.7 mmol/L (3.5-5.1); Sodium 136 mmol/L (136-145); Total Bilirubin 0.2 mg/dL (0.15-1.2); Total Protein 7.2 g/dL (6.6-8.7)
[2024-01-21 05:54] LABS: Magnesium 2.1 mg/dL (1.7-2.3)
[2024-01-21] MEDS: aztreonam 2,000 MG in sodium chloride 0.9% (plus) 100 ML 200 MG IV ×3 (06:27→23:07)
--- NOTE | 2024-01-21 09:00 | PICC.NOTE ---
Contacted by Med-surg charge nurse to assist with access of implanted port. Right chest port accessed using 19 gauge 1 inch port needle x 1 stick. Site cleaned with CHG and allowed to dry prior to access. Good, brisk blood return noted. Flushed with 20 mL NS. Secured with Sorbaview transparent dressing. Report given to charge nurseBeto.
[2024-01-21] MEDS: carBAMazepine 200 mg Tablet PO ×2 (09:34→23:07)
[2024-01-21] MEDS: pantoprazole DR 40 mg Tablet PO ×2 (09:35→23:08)
[2024-01-21] MEDS: loratadine 10 mg Tablet PO (09:35)
[2024-01-21] MEDS: folic acid 1 mg Tablet PO ×2 (09:35→17:39)
[2024-01-21] MEDS: heparin 5,000 unit/mL INJ 1 mL 5000 UNIT SUBCUT ×2 (12:10→23:10)
--- NOTE | 2024-01-21 12:42 | P.PN_ITS ---
Subjective 2 Subjective: seen this morning pt resting comfortably in bed no acute events overnight Vitals/I&O/Wt Last Vital Signs Temp 98.7 F 01/21/24 11:18 Pulse 108 H 01/21/24 11:18 Resp 15 01/21/24 11:18 BP 137/71 01/21/24 11:18 Pulse Ox 97 01/21/24 11:18 O2 Del Method Room Air 01/21/24 11:18 01/20/24 01/21/24 01/21/24 22:59 06:59 14:59 Intake Total 1340 / 1794 350 / 2144 1176 / 1176 Balance 1340 / 1794 350 / 2144 1176 / 1176 Weight last 48 hrs Weight 72.892 kg Weight 70.817 kg Physical Exam 2 Narrative: General: No acute distress, AO x3 HEENT: PERRLA, pupils bilaterally equal and reactive, pallors not present Chest: Normal vesicular breath sounds, no added sounds, equal good air entry bilaterally CVS: S1-S2 regular, no murmurs, no tachycardia, no gallops, no rubs Abdomen: Soft, nontender, no organomegaly, bowel sounds present Neuro: No focal deficits, no facial deformity, AO x3 Extremities: No gross edema. Visible skin intact. Few areas of ecchymosis present Data 01/21/24 04:27 01/21/24 04:27 Micro: Microbiology 01/21/24 12:09 Blood Culture - Preliminary Blood SPECIMEN COLLECTED A&P Assessment and plan (1) Infectious myositis: (2) Prader-Willi syndrome: (3) Autonomic dysfunction: Plan 34-year-old male with a past medical history of Prader-Willi syndrome, autonomic, seizure disorder currently admitted to the hospital with chief complaints of abdominal and back pain, fever at home. Patient was noted to be hypoxic CT of the abdomen and pelvis notable for heterogeneous soft tissue swelling in the left iliopsoas muscle with significant fat stranding and muscular edema concerning for iliopsoas myositis or hematoma. No appreciable drainable fluid at this time. High concerns for bacteremia given psoas myositis. Not able to access patient's port. Concern for mild fluctuation at the port site. Follow-up blood culture. Recheck CRP in AM. Continue with broad-spectrum antibiotics with aztreonam and vancomycin for now. Target trough of vancomycin 15-20. MRSA swab negative. Ultrasound of port site. Depending on the result might need I&D for culture. Full code Regular diet Protonix for PUD prophylaxis Heparin for DVT prophylaxis 01/20 ? Blood cultures negative to date. CRP trending down. ? Flank pain improving further ? Soft tissue ultrasound reviewed. No defined abscess around port however hypoechoic area seen. This may be possibly secondary to the port itself. ? Patient has a history of recurrent infections and there is concern for hematogenousl spread at this time. He has been on antibiotics multiple times in the past. ? Continue broad-spectrum vancomycin and aztreonam at this time. ? Will consult infectious disease for duration of antibiotic treatment and further input. Appreciate recommendations. - check echo - check crp in am - check blood cultures from port - continue IV antibiotics for now. - pt has been afebrile - Will continue to follow ID recs. Attestations 2 Medical Necessity Statement*: continue to hospitalize for psoas abscess Diagnoses Infectious myositis M60.009 Prader-Willi syndrome Q87.11 Autonomic dysfunction G90.9
[2024-01-21 22:26] LABS: Vancomycin Trough 61.4 ug/mL (10-15)
--- NOTE | 2024-01-21 22:31 | PC.NURSE ---
Addendum entered by Alyssa Simms RN 01/22/24 06:44: Notified Ania Cornejo of a.m. vanc trough, received instructions to go ahead and give scheduled morning dose of vancomycin. Original Note: Received critical result on vanc trough, result 61.4. Notified [facility] of result, instructed to redraw trough at 0500 and report back to telepharmacist the result at that time.
[2024-01-22] VITALS (8 sets, daily range): BP systolic 106–144; BP diastolic 72–89; PULSE 87–117; RESP 16–18; TEMP 36.5–37.3; O2SAT 93–98
[2024-01-22 06:07] LABS: Basophils # 0.1 10^3/uL (0.0-0.1); Basophils % 0.7 %; Eosinophils # 0.2 10^3/uL (0.0-0.8); Eosinophils % 1.4 %; Hematocrit 38.7 % (37-53); Lymphocytes # 1.9 10^3/uL (0.8-4.8); Mean Corpuscular Hemoglobin 23.8 pg (27-33); Mean Corpuscular Volume 76.6 fl (82-101); Monocytes # 0.9 10^3/uL (0.2-0.9); Monocytes % 6.5 %; Neutrophils % 76.3 %; Nucleated Red Blood Cells % 0 %; Platelet Count 583 10^3/cmm (157-399); Red Blood Count 5.05 10^6/uL (3.85-5.65); Red Cell Distribution Width 17.5 % (12.1-15.1); White Blood Count 13.64 10^3/uL (3.29-11.43)
[2024-01-22 06:27] LABS: Anion Gap 13.9 (5-19); Blood Urea Nitrogen 10 mg/dL (6-20); Calcium 8.9 mg/dL (8.5-10.5); Carbon Dioxide 26 mmol/L (22-29); Chloride 98 mmol/L (98-107); Creatinine Clr Calc Pharmacy 153.0875; Glomerular Filtration Rate 128.3 mL/min (90-130); Glucose 80 mg/dL (65-115); Magnesium 2.2 mg/dL (1.7-2.3); Osmolality Calculated 276 mOsm/kg (285-295); Potassium 3.9 mmol/L (3.5-5.1); Sodium 134 mmol/L (136-145)
[2024-01-22 06:32] LABS: Vancomycin Trough 17.6 ug/mL (10-15)
--- NOTE | 2024-01-22 06:53 | USCV_ITS ---
Lion Connell Age: 34 Gender: M : 1990 Exam Date: 01/22/2024 01:22 Ordering Phys: Mary Timmons MD Technologist: [email or web address] [place]am [place] [facility] [place]ication: ASSESS FOR ENDOCARDITIS BP: 122 / 76 HR: 101 Rhythm: Sinus Technical Quality: Adequate MEASUREMENTS (Male / Female) Normal Values 2D ECHO LV Diastolic Diameter PLAX 3.1 cm 4.2 - 5.9 / 3.9 - 5.3 cm IVS Diastolic Thickness 1.1 cm 0.6 - 1.0 / 0.6 - 0.9 cm IVS Systolic Thickness 1.6 cm LVPW Diastolic Thickness 0.9 cm 0.6 - 1.0 / 0.6 - 0.9 cm LVPW Systolic Thickness 1.0 cm LVOT Diameter 2.1 cm LV Ejection Fraction 2D Teich 75.5 % LV Ejection Fraction MOD 4C 51.7 % LV Ejection Fraction MOD 2C 54.9 % LV Ejection Fraction 2C AL 56.1 % LA Diameter 2.1 cm Aorta at Sinotubular Diameter 2.8 cm IVC Diameter 0.6 cm M-MODE LA Ao Ratio MM 0.9 AV Cusp Separation MM 1.6 cm DOPPLER AV Peak Velocity 74.0 cm/s LVOT Peak Velocity 76.0 cm/s AV Area Cont Eq vti 2.9 cm squared AV Area Cont Eq pk 3.6 cm squared MV Peak Velocity 95.0 cm/s MV Area PHT 5.0 cm squared Mitral E to A Ratio 0.8 TV Peak E Velocity 59.0 cm/s PV Peak Velocity 92.0 cm/s FINDINGS Left Ventricle Normal left ventricular size, systolic function and wall thickness, with no regional wall motion abnormalities. Left ventricular ejection fraction is estimated at 60 %. Grade I/IV diastolic dysfunction (abnormal relaxation filling pattern), normal to mildly elevated filling pressures. Right Ventricle The right ventricle is normal in size and function. Right Atrium The right atrium is normal in size. Left Atrium The left atrium is normal in size. Mitral Valve Moderately thickened mitral valve. Mild mitral valve regurgitation. Aortic Valve Structurally normal aortic valve without significant sclerosis or stenosis. There is no aortic regurgitation. Tricuspid Valve Structurally normal tricuspid valve without significant stenosis or regurgitation. Pulmonary artery systolic pressure is normal. Pulmonic Valve Structurally normal pulmonic valve without significant stenosis. There is no pulmonic regurgitation. Pericardium Normal pericardium without effusion. Aorta Normal ascending aorta dimension. IVC The inferior vena cava appears normal. CONCLUSIONS Normal left ventricular size, systolic function and wall thickness, with no regional wall motion abnormalities. Left ventricular ejection fraction is estimated at 60 %. Grade I/IV diastolic dysfunction (abnormal relaxation filling pattern), normal to mildly elevated filling pressures. No significant valve abnormalities. There is no pericardial effusion. Right atrial pressure is around 5 mm of mercury. Josh Parisi MD (Electronically Signed) Final Date: 22 January 2024 11:11 S
[2024-01-22] MEDS: vancomycin 1,250 MG/250 ML PIGGYBACK 166.67 MG IV (07:08)
[2024-01-22] MEDS: aztreonam 2,000 MG in sodium chloride 0.9% (plus) 100 ML 200 MG IV ×3 (08:47→22:36)
[2024-01-22 09:00] LABS: C Reactive Protein 45.4 mg/L (0.0-4.9)
[2024-01-22] MEDS: pantoprazole DR 40 mg Tablet PO ×2 (09:41→21:55)
[2024-01-22] MEDS: loratadine 10 mg Tablet PO (09:42)
[2024-01-22] MEDS: carBAMazepine 200 mg Tablet PO ×2 (09:42→21:55)
[2024-01-22] MEDS: folic acid 1 mg Tablet PO ×2 (09:42→17:48)
--- NOTE | 2024-01-22 11:38 | CT_ITS ---
WS: [id number] CT ABDOMEN PELVIS TECHNIQUE: Contrast-enhanced CT of the abdomen and pelvis with coronal and sagittal reformatted image s. CLINICAL INFORMATION: follow up left iliopsoas myositis COMPARISON: 01/18/2024 DLP: 899.[address] scans at [facility] use at least one of these dose optimization techniques: automated e xposure control; mA and/or kV adjustment per patient size (includes targeted exams where dose is matc hed to clinical indication); or iterative reconstruction. FINDINGS: Examination graded by breathing artifact Previously described LEFT iliopsoas hematoma or myositis is similar in appearance to the prior examin ation. Slightly decreased surrounding induration and soft tissue edema. Small amount of patchy enhanc ement extending into the iliacus. No drainable fluid collection or abscess. No other significant changes compared to previous. Mild diffuse fatty infiltration of the liver. Norm al portal vein and splenic vein. Normal spleen. Tiny esophageal hiatal hernia. Air-fluid level in the stomach. Lung bases are well aerated. Normal pancreas. Normal caliber abdominal aorta. No hydronephr osis in either kidney. Sigmoid diverticulosis. CT/CT abdomen pelvis w con* [id number] IMPRESSION: 1. Slight improvement in the induration surrounding the LEFT iliopsoas hematom a or myositis. Intramuscular edema extending into the iliacus with heterogeneou s soft tissue enhancement similar in appearance. No drainable abscess or fluid collection at this time. 2. Otherwise no significant changes compared to previous.
--- NOTE | 2024-01-22 12:08 | P.PN_ITS ---
Subjective 2 Subjective: Seen this morning. Patient's white count is 13,000 today. Platelets 583. C- reactive protein 45.4. Echo completed no vegetation seen. Cultures pending. Patient sitting up in bed appearing comfortable at this time. Parents at bedside. Vitals/I&O/Wt Last Vital Signs Temp 97.8 F 01/22/24 11:54 Pulse 106 H 01/22/24 11:54 Resp 16 01/22/24 11:54 BP 120/72 01/22/24 11:54 Pulse Ox 93 01/22/24 11:54 O2 Del Method Room Air 01/22/24 11:54 01/21/24 01/22/24 01/22/24 22:59 06:59 14:59 Intake Total 700 / 1876 1975 468 / 468 Balance / 1875 468 / 468 Weight last 48 hrs Weight 73.482 kg Weight 72.892 kg Physical Exam 2 Narrative: General: No acute distress, AO x3 HEENT: PERRLA, pupils bilaterally equal and reactive, pallors not present Chest: Normal vesicular breath sounds, no added sounds, equal good air entry bilaterally CVS: S1-S2 regular, no murmurs, no tachycardia, no gallops, no rubs Abdomen: Soft, nontender, no organomegaly, bowel sounds present Neuro: No focal deficits, no facial deformity, AO x3 Extremities: No gross edema. Visible skin intact. Few areas of ecchymosis present Data 01/22/24 05:16 01/22/24 05:16 Micro: Microbiology 01/21/24 12:09 Blood Culture - Preliminary Blood SPECIMEN COLLECTED A&P Assessment and plan (1) Infectious myositis: (2) Prader-Willi syndrome: (3) Autonomic dysfunction: Plan 34-year-old male with a past medical history of Prader-Willi syndrome, autonomic, seizure disorder currently admitted to the hospital with chief complaints of abdominal and back pain, fever at home. Patient was noted to be hypoxic CT of the abdomen and pelvis notable for heterogeneous soft tissue swelling in the left iliopsoas muscle with significant fat stranding and muscular edema concerning for iliopsoas myositis or hematoma. No appreciable drainable fluid at this time. High concerns for bacteremia given psoas myositis. Not able to access patient's port. Concern for mild fluctuation at the port site. Follow-up blood culture. Recheck CRP in AM. Continue with broad-spectrum antibiotics with aztreonam and vancomycin for now. Target trough of vancomycin 15-20. MRSA swab negative. Ultrasound of port site. Depending on the result might need I&D for culture. Full code Regular diet Protonix for PUD prophylaxis Heparin for DVT prophylaxis 01/21 ? Blood cultures negative to date. CRP 45.4. ? Soft tissue ultrasound reviewed. No defined abscess around port however hypoechoic area seen. This may be possibly secondary to the port itself. ? Patient has a history of recurrent infections and there is concern for hematogenousl spread at this time. He has been on antibiotics multiple times in the past. ? ID added daptomycin and aztreonam. CT abdomen pelvis planned for today. ? Awaiting blood cultures from port. If positive we will go ahead and consult general surgery for removing the port. If negative we will plan to treat with IV antibiotics x 2 weeks. ID will follow as an outpatient thereafter. - pt has been afebrile - Will continue to follow ID recs. ? Discussed with ID physician today. Attestations 2 Medical Necessity Statement*: continue to hospitalize for psoas abscess Diagnoses Infectious myositis M60.009 Prader-Willi syndrome Q87.11 Autonomic dysfunction G90.9
[2024-01-22] MEDS: iohexol 350 mg/mL 500 mL Btl (per mL) IV (12:35)
[2024-01-22] MEDS: heparin 5,000 unit/mL INJ 1 mL 5000 UNIT SUBCUT (14:53)
[2024-01-22] MEDS: vancomycin 1,250 MG/250 ML PIGGYBACK 166 MG IV ×2 (14:54→22:44)
[2024-01-23] VITALS (10 sets, daily range): BP systolic 104–136; BP diastolic 65–83; PULSE 92–120; RESP 16–19; TEMP 36.4–36.9; O2SAT 95–98
[2024-01-23] MEDS: heparin 5,000 unit/mL INJ 1 mL 5000 UNIT SUBCUT ×2 (00:15→12:00)
[2024-01-23 05:24] LABS: Basophils # 0.1 10^3/uL (0.0-0.1); Basophils % 0.8 %; Eosinophils # 0.2 10^3/uL (0.0-0.8); Eosinophils % 1.3 %; Hematocrit 39.4 % (37-53); Lymphocytes # 1.7 10^3/uL (0.8-4.8); Lymphocytes % 13.4 %; Mean Corpuscular HGB Conc 30.5 g/dL (30-55); Mean Corpuscular Hemoglobin 23.4 pg (27-33); Mean Platelet Volume 7.9 fL (7.4-10.4); Monocytes # 0.8 10^3/uL (0.2-0.9); Monocytes % 6.4 %; Neutrophils # 9.98 10^3/uL (1.8-7.7); Neutrophils % 76.9 %; Nucleated Red Blood Cells % 0 %; Platelet Count 582 10^3/cmm (157-399); Red Blood Count 5.12 10^6/uL (3.85-5.65); Red Cell Distribution Width 17.4 % (12.1-15.1); White Blood Count 12.97 10^3/uL (3.29-11.43)
[2024-01-23 05:47] LABS: Alanine Aminotransferase 103 U/L (0-41); Alkaline Phosphatase 127 U/L (40-130); Anion Gap 15.3 (5-19); Aspartate Amino Transferase 55 U/L (0-40); Blood Urea Nitrogen 10 mg/dL (6-20); Calcium 8.5 mg/dL (8.5-10.5); Carbon Dioxide 25 mmol/L (22-29); Chloride 102 mmol/L (98-107); Creatine Phosphokinase 79 U/L (39-308); Creatinine Clr Calc Pharmacy 150.3708; Globulin 3.4 g/dL (1.3-4.6); Glomerular Filtration Rate 128.3 mL/min (90-130); Glucose 90 mg/dL (65-115); Osmolality Calculated 287 mOsm/kg (285-295); Potassium 3.3 mmol/L (3.5-5.1); Sodium 139 mmol/L (136-145); Total Bilirubin 0.2 mg/dL (0.15-1.2); Total Protein 7.4 g/dL (6.6-8.7)
[2024-01-23] MEDS: aztreonam 2,000 MG in sodium chloride 0.9% (plus) 100 ML 200 MG IV (06:38)
[2024-01-23] MEDS: vancomycin 1,250 MG/250 ML PIGGYBACK 166 MG IV (06:38)
[2024-01-23] MEDS: loratadine 10 mg Tablet PO (09:17)
[2024-01-23] MEDS: chlorhexidine gluconate 4% Btl 118 mL 1 APPLIC TOPICAL (09:17)
[2024-01-23] MEDS: folic acid 1 mg Tablet PO ×2 (09:17→17:33)
[2024-01-23] MEDS: pantoprazole DR 40 mg Tablet PO ×2 (09:19→21:19)
[2024-01-23] MEDS: carBAMazepine 200 mg Tablet PO ×2 (09:19→21:19)
--- NOTE | 2024-01-23 12:22 | P.PN_ITS ---
Subjective 2 Subjective: ID progress note No new complaints states that his back pain is nearly resolved port cx remain negative to date from 01/20 Port is patent, able to flush and draw easily without issues He is eager to go home LFT trending up AST/ALT WBC stbale 12-13K Abdominal CT on 01/22 with improving myositis normal CK Medications: Reviewed: Yes Vitals/I&O/Wt Last Vital Signs Temp 97.9 F 01/23/24 11:52 Pulse 103 H 01/23/24 11:52 Resp 17 01/23/24 11:52 BP 104/65 01/23/24 11:52 Pulse Ox 96 01/23/24 11:52 O2 Del Method Room Air 01/23/24 07:32 01/22/24 01/23/24 01/23/24 22:59 06:59 14:59 Intake Total 590 / 1058 350 / 1408 460 / 460 Output Total 800 / 800 Balance -210 / 258 350 / 608 460 / 460 Weight last 48 hrs Weight 72.178 kg Weight 73.482 kg Physical Exam 2 Narrative: General: No acute distress, AO x3 HEENT: PERRLA, pupils bilaterally equal and reactive, pallors not present Chest: Normal vesicular breath sounds, no added sounds, equal good air entry bilaterally CVS: S1-S2 regular, no murmurs, no tachycardia, no gallops, no rubs Abdomen: back tenderness resolved Data 01/24/24 05:04 01/24/24 05:04 Micro: Microbiology 01/18/24 05:23 Blood Culture - Final Blood NO GROWTH AFTER 5 DAYS 01/18/24 05:20 Blood Culture - Final Blood NO GROWTH AFTER 5 DAYS 01/21/24 12:09 Blood Culture - Preliminary Blood port cx NEGATIVE TO DATE CT/CT abdomen pelvis w con* [id number] 01/22/24 IMPRESSION: 1. Slight improvement in the induration surrounding the LEFT iliopsoas hematoma or myositis. Intramuscular edema extending into the iliacus with heterogeneous soft tissue enhancement similar in appearance. No drainable abscess or fluid collection at this time. 2. Otherwise no significant changes compared to previous. A&P Assessment and plan (1) Prader-Willi syndrome: (2) Infectious myositis: (3) Autonomic dysfunction: Plan 34-year-old male with a past medical history of Prader-Willi syndrome, autonomic dysfunction, seizure disorder currently admitted to the hospital with chief complaints of abdominal and back pain, fever at home. CT of the abdomen and pelvis notable for heterogeneous soft tissue swelling in the left iliopsoas muscle with significant fat stranding and muscular edema concerning for iliopsoas myositis. No appreciable drainable fluid at this time. With fever, leukocytosis of 21,000, elevated CRP greater than 100, presume this to be infectious myositis. No preceding trauma at the site. Patient is not on any anticoagulation. Hemoglobin is stable at 11.8. Less likely to be hematoma. cause of infectious myositis in the psoas region not entirely clear. Does not appear to be a contiguous infection. Kidneys and ureters are normal without hydronephrosis. Stomach and bowel are unremarkable. Patient has chronic diarrhea which is unchanged over his baseline. C diff is negative. Possibly may be a hematogenous source of infection. Blood cultures taken from peripheral negative on 01/17. Called [facility] ER- blood cx taken there on 01/16 remain negative to date. Port has been unable to be accessed during admission. Requested charge nurse to try again today. Suspect hematogenous source, perhaps port infection. Patient hesitant to remove port without convincing evidence of infection at port. He states he has very poor iv access and would liek to retain port as far as possible. Discussed with him that we will try to establish functionality of the port today as it would be detrimental to maintain a port that does not even function anymore. Continue empiric treatment with aztreonam 2 g IV every 8 hours and vancomycin renally dosed with a target trough of 15-20. Family reports history of anaphylaxis to penicillin, nafcillin, piperacillin in the past. They are uncertain if patient has tried cephalosporins or carbapenems in the past. They are hesitant to try either of these medications today. Leukocytosis currently improving 21K--> 11K--> 13K. If increases will likely need to repeat abdominal imaging to ensure no interval development of abscess/persisting source Recommend to obtain echocardiogram TTE will follow with results of port cx 01/23/24: CT abdomen showing improvement. Afebrile. Hemodynamically stable. Feels better. leukocytosis remaining stable at 12K. Patient reports his baseline is 10-11 (no documentation available). Port cx remain negative to date. Patient hesitant to pull port without convincing evidence of infection at port. TTE negative for vegetations. Peripheral cx from 01/17 negative to date. Stable for discharge from ID standpoint. Recommend 2 weeks treatment with Iv Daptomycin 8mg/kg every 24 hrs (chosen as can be given OD at home, patient will be unable to get vanc trough monitoring in the absence of Home health) + aztreonam 1g iv every 8 hrs (reduced dose due to elevated AST/ALT- will monitor with next lab check). Weekly labs including CBC, creat, LFT, CPK and CRP to be taken at infusion center. Iv abx will be administered by patient's mother via port at home. Discussed with patient that should he fail to improve or becomes worse, hematogenous infection would remain a strong consideration. F/up Id clinic in 2 weeks Attestations 2 Medical Necessity Statement*: per admitting Coding Level of Care Code Acute Code for Chg Fwd Diagnoses Prader-Willi syndrome Q87.11 Infectious myositis M60.009 Autonomic dysfunction G90.9
--- NOTE | 2024-01-23 12:34 | PM.PN ---
Subjective Subjective: Seen today. Cultures negative to date. CT improving. Vitals/I&O/Wt Last Vital Signs Temp 97.9 F 01/23/24 11:52 Pulse 103 H 01/23/24 11:52 Resp 17 01/23/24 11:52 BP 104/65 01/23/24 11:52 Pulse Ox 96 01/23/24 11:52 O2 Del Method Room Air 01/23/24 07:32 01/22/24 01/23/24 01/23/24 22:59 06:59 14:59 Intake Total 590 / 1058 350 / 1408 460 / 460 Output Total 800 / 800 Balance -210 / 258 350 / 608 460 / 460 Weight last 48 hrs Weight 72.178 kg Weight 73.482 kg Physical Exam Narrative: General: No acute distress, AO x3 HEENT: PERRLA, pupils bilaterally equal and reactive, pallors not present Chest: Normal vesicular breath sounds, no added sounds, equal good air entry bilaterally CVS: S1-S2 regular, no murmurs, no tachycardia, no gallops, no rubs Abdomen: Soft, nontender, bowel sounds present Neuro: No focal deficits Extremities: No gross edema. Visible skin intact. Data 01/23/24 04:43 01/23/24 04:43 Micro: Microbiology 01/18/24 05:23 Blood Culture - Final Blood NO GROWTH AFTER 5 DAYS 01/18/24 05:20 Blood Culture - Final Blood NO GROWTH AFTER 5 DAYS 01/21/24 12:09 Blood Culture - Preliminary Blood NEGATIVE TO DATE A&P Assessment and plan (1) Infectious myositis: (2) Prader-Willi syndrome: (3) Autonomic dysfunction: Plan 34-year-old male with a past medical history of Prader-Willi syndrome, autonomic, seizure disorder currently admitted to the hospital with chief complaints of abdominal and back pain, fever at home. Patient was noted to be hypoxic CT of the abdomen and pelvis notable for heterogeneous soft tissue swelling in the left iliopsoas muscle with significant fat stranding and muscular edema concerning for iliopsoas myositis or hematoma. No appreciable drainable fluid at this time. High concerns for bacteremia given psoas myositis. Not able to access patient's port. Concern for mild fluctuation at the port site. Follow-up blood culture. Recheck CRP in AM. Continue with broad-spectrum antibiotics with aztreonam and vancomycin for now. Target trough of vancomycin 15-20. MRSA swab negative. Ultrasound of port site. Depending on the result might need I&D for culture. Full code Regular diet Protonix for PUD prophylaxis Heparin for DVT prophylaxis 01/22 ? Blood cultures negative to date. ? Soft tissue ultrasound reviewed. No defined abscess around port however hypoechoic area seen. This may be possibly secondary to the port itself. ?CT abdomen pelvis reviewed. Infection improving ? Cultures are negative to date. Discussed with ID. ? Plan to discharge home on daptomycin and aztreonam x 2 weeks. Patient to follow-up with ID as an outpatient thereafter. ? general distillery worker setting up antibiotics. Once that is complete we will discharge patient home. We have informed by pharmacy that one of the antibiotics will have to be ordered and and will take greater than 24 hours to obtain. Patient will remain in the hospital until home antibiotics are set up. Attestations Medical Necessity Statement*: Awaiting home antibiotics set up otherwise medically cleared for discharge. Once home antibiotics are set up patient will be discharged home in safe manner. Diagnoses Infectious myositis M60.009 Prader-Willi syndrome Q87.11 Autonomic dysfunction G90.9
[2024-01-23] MEDS: potassium chloride ER 20 mEq Tablet 40 MEQ PO (13:10)
[2024-01-23] MEDS: aztreonam 1,000 MG in sodium chloride 0.9% (plus) 50 ML 100 MG IV ×2 (13:32→21:27)
[2024-01-23] MEDS: DAPTOmycin 600 MG in sodium chloride 0.9% (100 ml) 100 ML 100 MG IV (16:31)
[2024-01-24] VITALS (7 sets, daily range): BP systolic 95–133; BP diastolic 60–84; PULSE 83–114; RESP 16–18; TEMP 36.3–36.9; O2SAT 93–98
[2024-01-24] MEDS: aztreonam 1,000 MG in sodium chloride 0.9% (plus) 50 ML 100 MG IV ×2 (05:06→13:27)
[2024-01-24 06:00] LABS: Basophils # 0.1 10^3/uL (0.0-0.1); Basophils % 0.8 %; Eosinophils # 0.2 10^3/uL (0.0-0.8); Eosinophils % 1.3 %; Lymphocytes # 2.1 10^3/uL (0.8-4.8); Lymphocytes % 16.9 %; Mean Corpuscular HGB Conc 30.3 g/dL (30-55); Mean Corpuscular Hemoglobin 23.2 pg (27-33); Mean Corpuscular Volume 76.8 fl (82-101); Monocytes # 0.9 10^3/uL (0.2-0.9); Monocytes % 7.6 %; Neutrophils # 8.93 10^3/uL (1.8-7.7); Nucleated Red Blood Cells % 0 %; Platelet Count 615 10^3/cmm (157-399); Red Blood Count 5.08 10^6/uL (3.85-5.65); Red Cell Distribution Width 17.7 % (12.1-15.1); White Blood Count 12.39 10^3/uL (3.29-11.43)
[2024-01-24 06:16] LABS: Anion Gap 14.3 (5-19); Blood Urea Nitrogen 12 mg/dL (6-20); Calcium 8.7 mg/dL (8.5-10.5); Carbon Dioxide 25 mmol/L (22-29); Chloride 100 mmol/L (98-107); Creatinine Clr Calc Pharmacy 131.1096; Glucose 100 mg/dL (65-115); Magnesium 2.2 mg/dL (1.7-2.3); Osmolality Calculated 282 mOsm/kg (285-295); Potassium 3.3 mmol/L (3.5-5.1); Sodium 136 mmol/L (136-145)
[2024-01-24] MEDS: chlorhexidine gluconate 4% Btl 118 mL 1 APPLIC TOPICAL (09:24)
[2024-01-24] MEDS: folic acid 1 mg Tablet PO (09:24)
[2024-01-24] MEDS: loratadine 10 mg Tablet PO (09:24)
[2024-01-24] MEDS: carBAMazepine 200 mg Tablet PO (09:27)
[2024-01-24] MEDS: pantoprazole DR 40 mg Tablet PO (09:27)
--- NOTE | 2024-01-24 10:43 | PM.DCS ---
Discharge Providers Date of Admission: 01/18/24 06:12 Date of Discharge: January 24, 2024 Attending Provider at Admission: Mary Timmons MD Attending Provider at Discharge: Augusta oFx MD Primary Care Provider: Manuelito Sullivan MD Diagnoses at Discharge Discharge Diagnosis (1) Prader-Willi syndrome: Status: Acute (2) Infectious myositis: Status: Acute (3) Autonomic dysfunction: Status: Inactive Reason for Visit Reason for Visit: Rt Side Pain Hospital Course Hospital Course Patient admitted for iliopsoas abscess. Imaging done upon admission. Patient kept on IV antibiotics. High concern for bacteremia given psoas myositis. Blood cultures negative to date. Port cultures also negative. Patient was kept on IV antibiotics and ID was consulted. Patient was discharged home on 2 weeks of daptomycin and aztreonam is to follow-up with ID as an outpatient. Patient's flank pain did improve. Repeat imaging was also performed during hospitalization which showed improvement of psoas abscess. Patient will follow-up with ID outpatient. Physical Exam Narrative: General: No acute distress, AO x3 HEENT: PERRLA, pupils bilaterally equal and reactive, pallors not present Chest: Normal vesicular breath sounds, no added sounds, equal good air entry bilaterally CVS: S1-S2 regular, no murmurs, no tachycardia, no gallops, no rubs Abdomen: Soft, nontender, bowel sounds present Neuro: No focal deficits Extremities: No gross edema. Visible skin intact. Discharge Data Studies Completed and Pending Completed Studies During Hospitalization Category Date Time Status CT abdomen pelvis w con* [id number] Routine Cat Scan 01/22/24 11:[address] abdomen pelvis w con* [id number] Urgent Cat Scan 01/18/24 02:45 Completed XR chest 1V portable [id number] Routine Exams 01/18/24 06:30 Completed CV. echo complete* [id number] Routine Ultrasound 01/22/24 06:53 Completed US soft tissue and or extremity [US soft tissue/ Ultrasound 01/19/24 11:58 Completed extremity [id number]] Routine Pending at discharge Category Date Time Status Blood Culture Routine Lab 01/21/24 12:09 Results Radiology Impressions Chest X-Ray 01/18/24 06:30 IMPRESSION: Low lung volumes with bronchovascular crowding. Soft Tissue Ultrasound 01/19/24 11:58 IMPRESSION: No definite fluid collection identified. Abdomen/Pelvis CT 01/22/24 11:38 IMPRESSION: 1. Slight improvement in the induration surrounding the LEFT iliopsoas hematoma or myositis. Intramuscular edema extending into the iliacus with heterogeneous soft tissue enhancement similar in appearance. No drainable abscess or fluid collection at this time. 2. Otherwise no significant changes compared to previous. Laboratory Results WBC 12.39 10^3/uL (3.29-11.43) H 01/24/24 05:04 RBC 5.08 10^6/uL (3.85-5.65) 01/24/24 05:04 Hgb 11.80 g/dL (11.27-16.99) 01/24/24 05:04 Hct 39.0 % (37-53) 01/24/24 05:04 MCV 76.8 fl (82-101) L 01/24/24 05:04 MCH 23.2 pg (27-33) L 01/24/24 05:04 MCHC 30.3 g/dL (30-55) 01/24/24 05:04 RDW 17.7 % (12.1-15.1) H 01/24/24 05:04 Plt Count 615 10^3/cmm (157-399) H 01/24/24 05:04 MPV 8.0 fL (7.4-10.4) 01/24/24 05:04 Neut % (Auto) 72.0 % 01/24/24 05:04 Lymph % (Auto) 16.9 % 01/24/24 05:04 [place] % (Auto) 7.6 % 01/24/24 05:04 Eos % (Auto) 1.3 % 01/24/24 05:04 Baso % (Auto) 0.8 % 01/24/24 05:04 Neut # (Auto) 8.93 10^3/uL (1.8-7.7) H 01/24/24 05:04 Lymph # (Auto) 2.1 10^3/uL (0.8-4.8) 01/24/24 05:04 [place] # (Auto) 0.9 10^3/uL (0.2-0.9) 01/24/24 05:04 Eos # (Auto) 0.2 10^3/uL (0.0-0.8) 01/24/24 05:04 Baso # (Auto) 0.1 10^3/uL (0.0-0.1) 01/24/24 05:04 Nucleated RBC % (auto) 0 % 01/24/24 05:04 Nucleated RBCs # 0.0 /100WBC 01/24/24 05:04 Sodium 136 mmol/L (136-145) 01/24/24 05:04 Potassium 3.3 mmol/L (3.5-5.1) L 01/24/24 05:04 Chloride 100 mmol/L (98-107) 01/24/24 05:04 Carbon Dioxide 25 mmol/L (22-29) 01/24/24 05:04 Anion Gap 14.3 (5-19) 01/24/24 05:04 BUN 12 mg/dL (6-20) 01/24/24 05:04 Creatinine 0.8 mg/dL (0.7-1.2) 01/24/24 05:04 GFR Calculation 110.0 mL/min (90-130) 01/24/24 05:04 Glucose 100 mg/dL (65-115) 01/24/24 05:04 Estimat Average Glucose 117 01/18/24 01:16 Hemoglobin A1c 5.7 % (4.0-6.0) 01/18/24 01:16 Calculated Osmolality 282 mOsm/kg (285-295) L 01/24/24 05:04 Lactic Acid 2.0 mmol/L (0.5-2.2) 01/18/24 01:16 Calcium 8.7 mg/dL (8.5-10.5) 01/24/24 05:04 Magnesium 2.2 mg/dL (1.7-2.3) 01/24/24 05:04 Iron 18 ug/dL (59-158) L 01/18/24 01:16 TIBC 217 mcg/dl 01/18/24 01:16 % Saturation 8.2 % (20-50) L 01/18/24 01:16 Unsat Iron Binding 199 ug/dL (112-347) 01/18/24 01:16 Total Bilirubin 0.2 mg/dL (0.15-1.2) 01/23/24 04:43 AST 55 U/L (0-40) H 01/23/24 04:43 ALT 103 U/L (0-41) H 01/23/24 04:43 Alkaline Phosphatase 127 U/L (40-130) 01/23/24 04:43 Creatine Kinase 79 U/L (39-308) 01/23/24 04:43 C-Reactive Protein 45.4 mg/L (0.0-4.9) H 01/22/24 05:16 Total Protein 7.4 g/dL (6.6-8.7) 01/23/24 04:43 Albumin 4.0 g/dL (3.5-5.2) 01/23/24 04:43 Globulin 3.4 g/dL (1.3-4.6) 01/23/24 04:43 Triglycerides 88 mg/dL (0-150) 01/19/24 03:16 Cholesterol 158 mg/dL (0-200) 01/19/24 03:16 LDL Cholesterol, Calc 100 mg/dL (50-129) 01/19/24 03:16 Total VLDL Cholesterol 18 mg/dL (0-30) 01/19/24 03:16 HDL Cholesterol 40 mg/dL (60-100) L 01/19/24 03:16 Cholesterol/HDL Ratio 3.95 mg/dL (1.0-5.00) 01/19/24 03:16 Lipase 7 U/L (13-60) L 01/18/24 01:16 Vitamin B12 554 pg/mL (232-1245) 01/18/24 01:16 Folate 3.2 ng/mL (4.5-32.2) L 01/19/24 03:16 Procalcitonin 0.08 ng/mL (0-0.5) 01/18/24 01:16 TSH 1.41 uIU/mL (0.27-4.20) 01/18/24 01:16 Urine Color Dark yellow (Yellow) A 01/18/24 02:39 Urine Appearance Clear (CLEAR) 01/18/24 02:39 Urine pH 6.5 (5-7) 01/18/24 02:39 Ur Specific Sneads 1.052 (1.005-1.030) H 01/18/24 02:39 Urine Protein 1+ (Negative) A 01/18/24 02:39 Urine Glucose (UA) Negative (Normal) 01/18/24 02:39 Urine Ketones Negative (Negative) 01/18/24 02:39 Urine Blood 1+ (Negative) A 01/18/24 02:39 Urine Nitrate Negative (Negative) 01/18/24 02:39 Urine Bilirubin Negative (Negative) 01/18/24 02:39 Urine Urobilinogen 1.0 mg/dL (Negative) 01/18/24 02:39 Ur Leukocyte Esterase Trace (Negative) A 01/18/24 02:39 Urine RBC 21-50 /hpf (0-2) H 01/18/24 02:39 Urine WBC 0-4 /hpf (0-5) H 01/18/24 02:39 Ur Squamous Epith Cells 6-10 /hpf (0-5) 01/18/24 02:39 Amorphous Sediment Not Reportable 01/18/24 02:39 Urine Bacteria None /hpf (NONE) 01/18/24 02:39 Hyaline Casts 0.81 /lpf 01/18/24 02:39 Nasal MRSA (PCR) Not detected (Negative) 01/18/24 15:30 Vancomycin Trough 17.6 ug/mL (10-15) H 01/22/24 05:16 C. difficile (PCR) Negative (Negative) 01/18/24 19:00 Vitals Last Vital Signs Temp 97.4 F L 01/24/24 08:00 Pulse 83 01/24/24 08:00 Resp 18 01/24/24 04:00 BP 133/80 01/24/24 08:00 Pulse Ox 96 01/24/24 07:23 O2 Del Method Room Air 01/24/24 07:23 Discharge Plan Discharge Patient Disposition: Home Condition: Stable Prescriptions: New mupirocin 2 % ointment 1 applic topical BID Qty: 22 0RF Rx Instructions: apply to anterior nares, groin folds and axillae BID x 5 days each month chlorhexidine gluconate [Hibiclens] 4 % liquid 1 applic topical DAILY 30 Days Qty: 473 0RF Rx Instructions: use to bathe 5 days a month, repeat monthly folic acid 1 mg Tablet 1 mg PO BEDTIME Qty: 30 0RF Continued carbamazepine 200 mg tablet 200 mg PO BID pantoprazole 40 mg tablet,delayed release (DR/EC) 40 mg PO BID loratadine 10 mg tablet 10 mg PO BID Discharge Orders: Discharge Order (Routine); Ordered 01/24/24 Ordered By: Augusta Dominique Other Ambulatory Orders: Miscellaneous Procedure (Order) Location: None Selected Ordered By: Augusta Dominique Complete Blood Count w/Auto (Q7D) Timeframe: 20240131 Location: Determined by Patient Ordered By: Augusta Dominique Complete Blood Count w/Auto (Q7D) Timeframe: 20240207 Location: Determined by Patient Ordered By: Augusta Dominique Complete Blood Count w/Auto (Q7D) Timeframe: 20240214 Location: Determined by Patient Ordered By: Augusta Dominique Creatine Phosphokinase (Q7D) Timeframe: 20240131 Facility: [facility] - Location: Lab - Main Lab Ordered By: Augusta Dominique Creatine Phosphokinase (Q7D) Timeframe: 20240207 Facility: [facility] - Location: Lab - Main Lab Ordered By: Augusta Dominique Creatine Phosphokinase (Q7D) Timeframe: 20240214 Facility: [facility] - Location: Lab - Main Lab Ordered By: Augusta Dominique Comprehensive Metabolic Panel (Q7D) Timeframe: 20240131 Facility: [facility] - Location: Lab - Main Lab Ordered By: Augusta Dominique Comprehensive Metabolic Panel (Q7D) Timeframe: 20240207 Facility: [facility] - Location: Lab - Main Lab Ordered By: Augusta Dominique Comprehensive Metabolic Panel (Q7D) Timeframe: 20240214 Facility: [facility] - Location: Lab - Main Lab Ordered By: Augusta Dominique CRP High Sensitivity Cardiac (Q7D) Timeframe: 20240131 Facility: [facility] - Location: Lab - Main Lab Ordered By: Augusta Dominique CRP High Sensitivity Cardiac (Q7D) Timeframe: 20240207 Facility: [facility] - Location: Lab - Main Lab Ordered By: Augusta Dominique CRP High Sensitivity Cardiac (Q7D) Timeframe: 20240214 Facility: [facility] - Location: Lab - Main Lab Ordered By: Augusta Dominique Referrals: [facility] [Provider Group] - 02/04/24 11:00 am [facility] [Outside] (We have notified the infusion center of the need for a follow-up appointment to be scheduled for labs and dressing changes. If you have not heard from them within the next 2 business days, please call them directly. ) Manuelito Sullivan MD [Primary Care Provider] - 01/27/24 3:00 pm Discharge Diet: Regular Discharge Activity: Resume usual activity Patient Instructions: Mupirocin (On the skin) (Bactroban, Centany, Centany AT, Dermawerx..., Folic Acid (By mouth), Chlorhexidine (On the skin) (Hibiclens, Hibistat, Urby-Hex,..., Polymyositis (GEN), Sepsis (GEN), Opioid Safety Activity Restrictions/Additional Instructions: Follow up with infectious disease clinic within 2 weeks. Continue IV antibiotics at home as directed. Discharge Attestations Time Spent in Discharge Care*: greater than 30 min Quality Metrics Clinical Quality Measures [ No reported AMI, CVA or VTE this stay] Coding Level of Care Code Acute Code for Chg Fwd Diagnoses Prader-Willi syndrome Q87.11 Infectious myositis M60.009 Autonomic dysfunction G90.9
[2024-01-24] MEDS: DAPTOmycin 600 MG in sodium chloride 0.9% (100 ml) 100 ML 100 MG IV (12:27)
[2024-01-24] MEDS: heparin 5,000 unit/mL INJ 1 mL 5000 UNIT SUBCUT ×2 (12:30)
--- NOTE | 2024-01-24 15:18 | PC.NURSE ---
Discussed discharge with patient, mother and grandfather. Went over ordered appointments and where the dates were located on the order. Stated the port dressing was changed today. Needs to be changed in 7 days when back for labs to be drawn. Discussed medications and hibiclens baths for 5 days every month. Went over follow up appointments as well. Mother verbalized understanding.
== END 2024-01-24 15:24 | disposition home or self-care (01) | DRG 558 ==
LOC: ER 04:39 → MEDSURG 06:13
PROVIDERS: Internal Medicine; Student in an Organized Health Care Education/Training Program; Admitting Provider Student in an Organized Health Care Education/Training Program; Emergency Provider Emergency Medicine; PCP Family Medicine; Visit Provider Internal Medicine
DX: M60.08 Infective myositis, other site (principal); Q87.11 Prader-Willi syndrome; G40.909 Epilepsy, unspecified, not intractable, without status epilepticus; R09.02 Hypoxemia; G90.89 Other disorders of autonomic nervous system; Z99.3 Dependence on wheelchair
CPT/HCPCS: 36415; 36591; 71045; 74177; 76882; 80048; 80053; 80061; 80202; 81001; 82550; 82607; 82746; 83036; 83540; 83550; 83605; 83690; 83735; 84145; 84443; 85025; 86140; 86403; 87040; 87493; 93005; 93306; 96365; 96367; 96372; 96375; 99285; J0878; J1644; J1956; J3370; J3480; J3490; J7030; J7040; J7050

== ENCOUNTER 2024-02-07 09:30 | Oncology outpatient (recurring) (ONCR) | payer MEDICAID, SELFPAY ==
[2024-01-31 10:18] LABS: Basophils # 0.1 10^3/uL (0.0-0.1); Basophils % 0.8 %; Eosinophils % 0.1 %; Hematocrit 36.6 % (37-53); Lymphocytes % 13.3 %; Mean Corpuscular HGB Conc 30.6 g/dL (30-55); Mean Corpuscular Hemoglobin 23.2 pg (27-33); Mean Corpuscular Volume 75.8 fl (82-101); Mean Platelet Volume 7.8 fL (7.4-10.4); Monocytes # 1.5 10^3/uL (0.2-0.9); Monocytes % 20.5 %; Neutrophils # 4.79 10^3/uL (1.8-7.7); Neutrophils % 64.2 %; Nucleated Red Blood Cells % 0 %; Platelet Count 559 10^3/cmm (157-399); Red Blood Count 4.83 10^6/uL (3.85-5.65); Red Cell Distribution Width 18.4 % (12.1-15.1); White Blood Count 7.46 10^3/uL (3.29-11.43)
[2024-01-31 10:34] LABS: Alanine Aminotransferase 73 U/L (0-41); Albumin Level 4.3 g/dL (3.5-5.2); Alkaline Phosphatase 105 U/L (40-130); Anion Gap 14.3 (5-19); Aspartate Amino Transferase 26 U/L (0-40); Blood Urea Nitrogen 16 mg/dL (6-20); Calcium 8.7 mg/dL (8.5-10.5); Carbon Dioxide 27 mmol/L (22-29); Chloride 101 mmol/L (98-107); Creatine Phosphokinase 150 U/L (39-308); Globulin 3.3 g/dL (1.3-4.6); Glucose 95 mg/dL (65-115); Osmolality Calculated 289 mOsm/kg (285-295); Potassium 3.3 mmol/L (3.5-5.1); Sodium 139 mmol/L (136-145); Total Bilirubin 0.2 mg/dL (0.15-1.2); Total Protein 7.6 g/dL (6.6-8.7)
== END 2024-02-13 23:59 | disposition home or self-care (01) ==
PROVIDERS: PCP Family Medicine; Visit Provider Internal Medicine
DX: Z53.9 Procedure and treatment not carried out, unspecified reason (principal)
CPT/HCPCS: 36591; 80053; 82550; 85025; 86141

== ENCOUNTER 2024-02-14 08:14 | Outpatient (CLI) | payer MEDICAID, SELFPAY ==
--- NOTE | 2024-02-14 09:00 | CT_ITS ---
WS: [id number] CT ABDOMEN AND PELVIS WITH CONTRAST HISTORY: infectious myositis TECHNIQUE: Imaging performed of the abdomen and pelvis with IV contrast. Single phase imaging of the abdomen. Coronal and sagittal reformats are submitted. All CT scans at [facility] use at [facility] [facility] one of these dose optimization techniques: automated exposure control; mA and/or kV adjustment per patient size (includes targeted exams where dose is matched to clinical indication); or iterative re construction. IV CONTRAST: Omnipaque 350; 100 mL IV. Oral contrast: No DLP: 534.62 mGy.cm COMPARISON: 01/22/2024 Lower thorax: Lung bases are clear. Heart is normal size. No hiatal hernia. Liver/biliary system: Normal size with no intrahepatic dilatation. Gallbladder: Normal. No gallstones or wall thickening. No pericholecystic fluid. Pancreas: Normal size pancreas and pancreatic duct. No adjacent inflammation. Spleen: Normal size spleen. No mass or infarct. Adrenal glands: Normal. Right kidney: Normal. Left kidney: Normal. Aorta: Normal. Lymphadenopathy: None. Free fluid: None. GI tract: Normally distended stomach. No small bowel obstruction. Normal appendix. No colitis. Previously described inflammation surrounding the LEFT psoas and iliac is muscles has resolved. There is no abscess or acute inflammation on today's exam. There is mild atrophy involving the iliacus and psoas muscle with fatty replacement. This is a chronic finding. Abdominal wall: Unremarkable abdominal wall. No hernia. Pelvis: No free fluid or adenopathy within the pelvis. Nondistended bladder. Bladder wall is diffusel y thickened measuring up to 9 mm. Bones: Amputation site proximal RIGHT femoral diaphysis. Additional fatty atrophy involving the muscl es of the proximal RIGHT thigh. CT/CT abdomen pelvis w con* [id number] IMPRESSION: 1. Complete resolution of the myositis involving the LEFT psoas and iliac is m uscles. No residual edema or collection. 2. Mild fatty atrophy of the LEFT psoas and iliacus muscle is chronic. 3. Diffuse bladder wall thickening. 4. No ascites or adenopathy.
[2024-02-14] MEDS: iohexol 350 mg/mL 500 mL Btl (per mL) IV (09:35)
== END 2024-02-14 08:15 | disposition home or self-care (01) ==
LOC: RAD 08:15
PROVIDERS: PCP Family Medicine; Visit Provider Student in an Organized Health Care Education/Training Program
DX: M60.052 Infective myositis, left thigh (principal); N32.89 Other specified disorders of bladder
CPT/HCPCS: 74177